=== PATIENT | female | born 1950 | race Caucasian/White ===

== ENCOUNTER 2021-03-17 02:16 | Inpatient (IN) ==
[2021-03-17] MEDS ORDERED: ALBUT/IPRATROP 3MG/0.5MG NEB 3 ML VIAL NEB STA (02:41)
--- NOTE | 2021-03-17 02:44 | Emergency Department Note ---
Impression & Plan Hypoxia ADMIT ED Provider Note HPI: The patient is a 71-year-old female who presents the emergency department with a chief complaint of generalized illness and shortness of breath. Patient states her symptoms have been worsening for about the past week. Patient states that her daughter was at her house tonight and noticed that she seemed to be looking and feeling ill and therefore contacted EMS for the patient to be transported to the ED. Per EMS report the patient had hypoxia in the field at about 70%, she was placed on nasal cannula oxygen with improvement in her saturations. On arrival here to the ED the patient is a poor historian but she is alert, she is saturating at 99% on 4 L nasal cannula oxygen, she is noted to be febrile at 38.3 Celsius, blood pressure stable at 148/68. ROS: -General: Fever -Pulmonary: Hypoxia *10 point review systems was conducted and is otherwise negative unless stated above *Outpatient medications and allergy history reviewed PE: General: Alert HEENT: Normocephalic, atraumatic Eyes: Extraocular eye movement is intact, no scleral erythema Pulmonary: Slightly diminished bilaterally with expiratory wheezing Cardio: Regular rate and rhythm GI: Abdomen is soft, nontender, mild distention : No suprapubic tenderness MSK: No evidence of trauma or malformation of the extremities, no edema Skin: No evidence of rash Neuro: Alert, no focal deficits Psychiatric: Cooperative cafeteria monitor: - An order was placed for continuous cardiac monitoring - Patient was noted to be in sinus rhythm with rate of 80 EKG: Rate: 87 Rhythm: Normal sinus rhythm Intervals: Within normal limits ST changes: No ST elevation Time: 0226 Medical Decision Making: Patient presented to the emergency department with hypoxia, she has had some generalized illness recently, states that she is felt somewhat dizzy on my reas sessment. Patient was noted to have had a recent visit here in the emergency department for dizziness, thought to be vertigo following negative CT imaging of the head. Patient states she is continued to have some symptoms including dizziness and vomiting as well as shortness of breath. Her daughter later arrived at the bedside to provide most of this history. EKG does not show any ischemic changes or arrhythmia, patient's troponin was noted to be slightly elevated at 0.05, she denies any chest pain on my reassessment. She was given aspirin in the ED. I suspect this is demand ischemia related to her hypoxia. Patient's chest x-ray does not show an obvious pneumonia here, given her fever I did obtain blood cultures x2, patient was started on broad-spectrum antibiotics with vancomycin and Zosyn for additional anaerobic coverage following history that was obtained of the patient and angela montanoing. I do not see an obvious pneumonia on her chest x-ray, suspect she may have an early aspiration component given her hypoxia. COVID-19 testing is negative. My reassessment the patient did exhibit an episode of vomiting after the nurse gave her something to drink, given this new history I did discuss her symptoms with the patient and the daughter at the bedside and we will obtain CT imaging of the abdomen and pelvis to rule out a small bowel obstruction or other acute intra-abdominal pathology. I discussed all the above with the on-call hospitalist for [facility], Dr. House, and the patient will be admitted to a telemetry bed for further management. * CRITICAL CARE TIME: ( 35 ) minutes -Stabilization of hypoxia requiring nasal cannula oxygen to maintain oxygen saturations greater than 90%, time spent at the bedside, interpretation of diagnostic studies, discussion with other physicians and arrangement of admission Diagnosis: 1. Hypoxia 2. Fever 3. Elevated troponin 4. Nausea and vomiting Disposition: Admission Eddie Lara DO Emergency Medicine Past Med/Surg History Social History Smoking Status: Current every day smoker Tobacco Type: Cigarettes Preferred Language: [place] Feels Safe at Home: Yes Allergies Allergies Allergy/AdvReac Type Severity Reaction Status Date / Time No Known Allergies Allergy Verified 03/17/21 02:34 Home Meds Home Medications Medication Instructions Recorded Confirmed ondansetron HCl 4 mg tablet 4 mg PO Q8H PRN 03/17/21 03/17/21 Previous Rx's Medication Instructions Recorded meclizine 25 mg tablet 25 mg PO BID PRN #10 tab 03/10/21 Results & Data (ED) Vital Signs Vital Signs - 24 hr 03/17/21 02:26 03/17/21 02:42 03/17/21 02:43 Temperature 38.3 C H Temperature Source Oral Pulse Rate 90 84 Pulse Rate [Apical] Respiratory Rate 26 H 26 H Respiratory Effort / Characteristics Non-Labored Spontaneous Respiratory Depth Normal Blood Pressure 148/68 H Blood Pressure [Right Arm] Blood Pressure Mean 94 Blood Pressure Mean [Right Arm] Pulse Oximetry 99 98 98 Oxygen Delivery Method Nasal Cannula Nasal Cannula Nasal Cannula Oxygen Flow Rate 4 4 4 Sepsis Recent Fever Within 48 Hours Yes Sepsis New/Unexplained Change in Mental Status No Sepsis Action Taken by Nursing No Action Required 03/17/21 03:13 03/17/21 03:14 03/17/21 04:08 Temperature Temperature Source Pulse Rate Pulse Rate [Apical] 73 72 Respiratory Rate 28 H 20 Respiratory Effort / Characteristics Respiratory Depth Blood Pressure Blood Pressure [Right Arm] 106/56 L 98/52 L Blood Pressure Mean Blood Pressure Mean [Right Arm] 72 67 Pulse Oximetry 97 97 94 Oxygen Delivery Method Nasal Cannula Nasal Cannula Nasal Cannula Oxygen Flow Rate 4 4 3 Sepsis Recent Fever Within 48 Hours Sepsis New/Unexplained Change in Mental Status Sepsis Action Taken by Nursing 03/17/21 04:21 Temperature Temperature Source Pulse Rate Pulse Rate [Apical] 78 Respiratory Rate 28 H Respiratory Effort / Characteristics Respiratory Depth Blood Pressure Blood Pressure [Right Arm] 127/75 Blood Pressure Mean Blood Pressure Mean [Right Arm] 92 Pulse Oximetry 93 Oxygen Delivery Method Nasal Cannula Oxygen Flow Rate 3 Sepsis Recent Fever Within 48 Hours Sepsis New/Unexplained Change in Mental Status Sepsis Action Taken by Nursing Laboratory Data Result diagrams: 03/17/21 02:30 03/17/21 02:30 Lab Results 03/17/21 03/17/21 03/17/21 Range/Units 02:30 02:30 02:30 WBC 9.24 (4.8-10.8) K/uL RBC 4.62 (4.2-5.4) M/uL Hgb 14.1 (12.0-16.0) g/dL Hct 44.8 (37-47) % MCV 97.0 (80-100) fL MCH 30.5 (25-34) pg MCHC 31.5 L (32-36) g/dL RDW Std Deviation 48.3 H (36.4-46.3) fL RDW Coeff of Anderson 13.6 (11.5-14.5) % Plt Count 235 (130-400) K/uL MPV 12.4 H (7.4-10.4) fL Immature Gran % (Auto) 0.3 % Neut % (Auto) 79.3 % Lymph % (Auto) 14.7 % Pick[place] % (Auto) 5.4 % Eos % (Auto) 0.0 % Baso % (Auto) 0.3 % Neut # (Auto) 7.32 H (1.4-6.5) K/uL Lymph # (Auto) 1.36 (1.2-3.4) K/uL Pickens # (Auto) 0.50 (0.11-0.59) K/uL Eos # (Auto) 0.00 (0-0.5) K/uL Baso # (Auto) 0.03 (0-0.2) K/uL Immature Gran # (Auto) 0.03 H (0.00-0.02) K/uL PT 11.4 (9.0-12.0) Seconds INR 1.1 (0.9-1.1) APTT 27.1 (21.0-31.0) Seconds PTT Ratio 1.0 VBG pH (7.36-7.41) VBG pCO2 (38-50) mmHg VBG pO2 mmHg VBG HCO3 mmol/L VBG O2 Saturation % VBG Base Excess mEq/L Sodium 136 (136-145) mmol/L Potassium 3.6 (3.5-5.1) mmol/L Chloride 97 L (98-107) mmol/L Carbon Dioxide 28 (21-32) mmol/L Anion Gap 11 (3-11) BUN 16 (6-23) mg/dl Creatinine 0.68 (0.6-1.2) mg/dl Est Cr Clr Drug Dosing 77.5 ml/min Est GFR ( Amer) 103.4 ml/min Est GFR (Non-Af Amer) 89.2 ml/min BUN/Creatinine Ratio 23.5 H (10-20) Glucose 126 H (70-99(Fasting)) mg/dl Lactate (0.4-2.0) mmol/L Calcium 8.9 (8.5-10.1) mg/dl Magnesium 1.8 (1.7-2.4) mg/dl Total Bilirubin 0.4 (0.2-1.0) mg/dl AST 15 (13-39) U/L ALT 11 (7-52) U/L Alkaline Phosphatase 97 (34-104) U/L Troponin I 0.05 H* (0-0.04) ng/ml Total Protein 6.8 (6.0-8.3) gm/dl Albumin 3.9 (3.4-5.0) gm/dl Globulin 2.9 (2.5-4.0) gm/dl Albumin/Globulin Ratio 1.3 (0.9-2) Procalcitonin (0-0.5) ng/ml Urine Color Urine Appearance (Clear) Urine pH (4.5-7.5) Ur Specific [place] (1.000-1.030) Urine Protein (Negative) Urine Glucose (UA) (Negative) Urine Ketones (Negative) Urine Blood (Negative) Urine Nitrite (Negative) Urine Bilirubin (Negative) Urine Urobilinogen (Negative) Ur Leukocyte Esterase (Negative) Urine WBC (Auto) (0-5) /hpf Urine RBC (Auto) (0-4) /hpf U Hyaline Cast (Auto) (0-5) /lpf U Epithel Cells (Auto) (0-5) /lpf Urine Bacteria (Auto) (Negative) Amorphous Sediment (None Prsent) SARS-CoV-2 (PCR) (Negative) Influenza Type A (PCR) (Neg) Influenza Type B (PCR) (Neg) RSV (RT-PCR) (Neg) 03/17/21 03/17/21 03/17/21 Range/Units 02:30 02:55 03:00 WBC (4.8-10.8) K/uL RBC (4.2-5.4) M/uL Hgb (12.0-16.0) g/dL Hct (37-47) % MCV (80-100) fL MCH (25-34) pg MCHC (32-36) g/dL RDW Std Deviation (36.4-46.3) fL RDW Coeff of Anderson (11.5-14.5) % Plt Count (130-400) K/uL MPV (7.4-10.4) fL Immature Gran % (Auto) % Neut % (Auto) % Lymph % (Auto) % [place] % (Auto) % Eos % (Auto) % Baso % (Auto) % Neut # (Auto) (1.4-6.5) K/uL Lymph # (Auto) (1.2-3.4) K/uL [place] # (Auto) (0.11-0.59) K/uL Eos # (Auto) (0-0.5) K/uL Baso # (Auto) (0-0.2) K/uL Immature Gran # (Auto) (0.00-0.02) K/uL PT (9.0-12.0) Seconds INR (0.9-1.1) APTT (21.0-31.0) Seconds PTT Ratio VBG pH (7.36-7.41) VBG pCO2 (38-50) mmHg VBG pO2 mmHg VBG HCO3 mmol/L VBG O2 Saturation % VBG Base Excess mEq/L Sodium (136-145) mmol/L Potassium (3.5-5.1) mmol/L Chloride (98-107) mmol/L Carbon Dioxide (21-32) mmol/L Anion Gap (3-11) BUN (6-23) mg/dl Creatinine (0.6-1.2) mg/dl Est Cr Clr Drug Dosing ml/min Est GFR ( Amer) ml/min Est GFR (Non-Af Amer) ml/min BUN/Creatinine Ratio (10-20) Glucose (70-99(Fasting)) mg/dl Lactate (0.4-2.0) mmol/L Calcium (8.5-10.1) mg/dl Magnesium (1.7-2.4) mg/dl Total Bilirubin (0.2-1.0) mg/dl AST (13-39) U/L ALT (7-52) U/L Alkaline Phosphatase (34-104) U/L Troponin I (0-0.04) ng/ml Total Protein (6.0-8.3) gm/dl Albumin (3.4-5.0) gm/dl Globulin (2.5-4.0) gm/dl Albumin/Globulin Ratio (0.9-2) Procalcitonin 0.12 (0-0.5) ng/ml Urine Color Dark Yellow Urine Appearance Cloudy A (Clear) Urine pH 5.0 (4.5-7.5) Ur Specific [place] 1.024 (1.000-1.030) Urine Protein 2+ H (Negative) Urine Glucose (UA) Negative (Negative) Urine Ketones 2+ H (Negative) Urine Blood 2+ H (Negative) Urine Nitrite Negative (Negative) Urine Bilirubin 1+ H (Negative) Urine Urobilinogen Negative (Negative) Ur Leukocyte Esterase Negative (Negative) Urine WBC (Auto) 5-10 H (0-5) /hpf Urine RBC (Auto) 10-30 H (0-4) /hpf U Hyaline Cast (Auto) 1-5 (0-5) /lpf U Epithel Cells (Auto) >30 H (0-5) /lpf Urine Bacteria (Auto) 1+ H (Negative) Amorphous Sediment Present A (None Prsent) SARS-CoV-2 (PCR) NEGATIVE (Negative) Influenza Type A (PCR) Negative (Neg) Influenza Type B (PCR) Negative (Neg) RSV (RT-PCR) Negative (Neg) 03/17/21 03/17/21 Range/Units 03:05 04:50 WBC (4.8-10.8) K/uL RBC (4.2-5.4) M/uL Hgb (12.0-16.0) g/dL Hct (37-47) % MCV (80-100) fL MCH (25-34) pg MCHC (32-36) g/dL RDW Std Deviation (36.4-46.3) fL RDW Coeff of Anderson (11.5-14.5) % Plt Count (130-400) K/uL MPV (7.4-10.4) fL Immature Gran % (Auto) % Neut % (Auto) % Lymph % (Auto) % [place] % (Auto) % Eos % (Auto) % Baso % (Auto) % Neut # (Auto) (1.4-6.5) K/uL Lymph # (Auto) (1.2-3.4) K/uL [place] # (Auto) (0.11-0.59) K/uL Eos # (Auto) (0-0.5) K/uL Baso # (Auto) (0-0.2) K/uL Immature Gran # (Auto) (0.00-0.02) K/uL PT (9.0-12.0) Seconds INR (0.9-1.1) APTT (21.0-31.0) Seconds PTT Ratio VBG pH 7.40 (7.36-7.41) VBG pCO2 50 (38-50) mmHg VBG pO2 66 mmHg VBG HCO3 30 mmol/L VBG O2 Saturation 93.5 % VBG Base Excess 4.1 mEq/L Sodium (136-145) mmol/L Potassium (3.5-5.1) mmol/L Chloride (98-107) mmol/L Carbon Dioxide (21-32) mmol/L Anion Gap (3-11) BUN (6-23) mg/dl Creatinine (0.6-1.2) mg/dl Est Cr Clr Drug Dosing ml/min Est GFR ( Amer) ml/min Est GFR (Non-Af Amer) ml/min BUN/Creatinine Ratio (10-20) Glucose (70-99(Fasting)) mg/dl Lactate 0.6 (0.4-2.0) mmol/L Calcium (8.5-10.1) mg/dl Magnesium (1.7-2.4) mg/dl Total Bilirubin (0.2-1.0) mg/dl AST (13-39) U/L ALT (7-52) U/L Alkaline Phosphatase (34-104) U/L Troponin I (0-0.04) ng/ml Total Protein (6.0-8.3) gm/dl Albumin (3.4-5.0) gm/dl Globulin (2.5-4.0) gm/dl Albumin/Globulin Ratio (0.9-2) Procalcitonin (0-0.5) ng/ml Urine Color Urine Appearance (Clear) Urine pH (4.5-7.5) Ur Specific [place] (1.000-1.030) Urine Protein (Negative) Urine Glucose (UA) (Negative) Urine Ketones (Negative) Urine Blood (Negative) Urine Nitrite (Negative) Urine Bilirubin (Negative) Urine Urobilinogen (Negative) Ur Leukocyte Esterase (Negative) Urine WBC (Auto) (0-5) /hpf Urine RBC (Auto) (0-4) /hpf U Hyaline Cast (Auto) (0-5) /lpf U Epithel Cells (Auto) (0-5) /lpf Urine Bacteria (Auto) (Negative) Amorphous Sediment (None Prsent) SARS-CoV-2 (PCR) (Negative) Influenza Type A (PCR) (Neg) Influenza Type B (PCR) (Neg) RSV (RT-PCR) (Neg) Administered Medications Sodium Chloride (Nss 1000ml) 1,000 mls @ 999 mls/hr IV .Q1H1M ONE Stop: 03/17/21 05:23 Last Admin: 03/17/21 04:45 Dose: 999 mls/hr Documented by: [id number] Discontinued Medications Albuterol (Albut/Ipratrop 3mg/0.5mg Neb 3 Ml Vial) 3 ml NEB NOW STA; Protocol Stop: 03/17/21 02:42 Last Admin: 03/17/21 02:53 Dose: 3 ml Documented by: [id number] Aspirin (Aspirin Chew 324 Mg) 324 mg PO NOW STA Stop: 03/17/21 04:09 Last Admin: 03/17/21 04:19 Dose: 324 mg Documented by: [id number] Piperacillin Sod/Tazobactam Sod (Zosyn) 4.5 gm in 120 mls @ 240 mls/hr IV NOW ONE Stop: 03/17/21 05:01 Last Admin: 03/17/21 04:45 Dose: 240 mls/hr Documented by: [id number] Discharge Plan Visit Data Chief Complaint: Illness Stated Complaint: Dizziness, Illness ED Provider: Eddie Lara Discharge Problem: Hypoxia Forms Stand Alone Forms: [facility] Prescriptions Prescriptions: No Action meclizine 25 mg tablet 25 mg PO BID PRN (Reason: dizziness) Qty: 10 RF: 0 ondansetron HCl 4 mg tablet 4 mg PO Q8H PRN (Reason: NAUSEA/VOMITING) RF: 0 Referrals Referrals: Jacki Alejandro DO [Primary Care Provider] -
[2021-03-17 03:01] LABS: Basophils # (auto) 0.03 K/uL (0-0.2); Basophils % (auto) 0.3 %; Hematocrit (blood only) 44.8 % (37-47); Hemoglobin 14.1 g/dL (12.0-16.0); Immature Granulocytes # (auto) 0.03 K/uL (0.00-0.02); Immature Granulocytes % (auto) 0.3 %; Lymphocytes # (auto) 1.36 K/uL (1.2-3.4); Lymphocytes % (auto) 14.7 %; Mean Corpuscular Hemoglobin 30.5 pg (25-34); Mean Corpuscular Hgb Conc 31.5 g/dL (32-36); Mean Platelet Volume 12.4 fL (7.4-10.4); Monocytes % (auto) 5.4 %; Neutrophils # (auto) 7.32 K/uL (1.4-6.5); Neutrophils % (auto) 79.3 %; Platelet Count 235 K/uL (130-400); RDW Coefficient of Variation 13.6 % (11.5-14.5); RDW Standard Deviation 48.3 fL (36.4-46.3); Red Blood Count 4.62 M/uL (4.2-5.4); White Blood Count 9.24 K/uL (4.8-10.8)
[2021-03-17 03:17] LABS: INR 1.1 (0.9-1.1); Partial Thromboplastin Time 27.1 Seconds (21.0-31.0); Prothrombin Time 11.4 Seconds (9.0-12.0)
[2021-03-17 03:21] LABS: Albumin Globulin Ratio 1.3 (0.9-2); Albumin Level 3.9 gm/dl (3.4-5.0); BUN Creatinine Ratio 23.5 (10-20); Bilirubin,Total 0.4 mg/dl (0.2-1.0); Calcium 8.9 mg/dl (8.5-10.1); Creatinine Clr Calc Pharmacy 77.5 ml/min; Est GFR (African American) 103.4 ml/min; Est GFR (Non-African American) 89.2 ml/min; Globulin 2.9 gm/dl (2.5-4.0); Magnesium 1.8 mg/dl (1.7-2.4); Potassium 3.6 mmol/L (3.5-5.1); Total Protein 6.8 gm/dl (6.0-8.3)
[2021-03-17 03:28] LABS: Troponin I 0.05 ng/ml (0-0.04)
[2021-03-17 03:29] LABS: Appearance Urine Cloudy (Clear); Bacteria Urine Automated 1+ (Negative); Blood Urine 2+ (Negative); Color Urine Dark Yellow; Epithelial Cell Urine Auto >30 /lpf (0-5); Glucose Urine UA Negative (Negative); Ketones Urine 2+ (Negative); Leukocyte Esterase Urine Negative (Negative); Nitrite Urine Negative (Negative); Protein Urine 2+ (Negative); Specific Gravity Urine 1.024 (1.000-1.030); Urobilinogen Urine Negative (Negative)
[2021-03-17 03:34] LABS: Bilirubin Urine 1+ (Negative)
[2021-03-17 03:47] LABS: Amorphous Sediment Urine Present (None Prsent)
[2021-03-17] MEDS ORDERED: ASPIRIN CHEW 324 MG PO STA (04:08)
[2021-03-17 04:17] LABS: Influenza A virus by PCR Negative (Neg); Influenza B virus by PCR Negative (Neg); RSV by PCR Negative (Neg); SARS CoV2 RNA(COVID-19) InHosp NEGATIVE (Negative)
[2021-03-17] MEDS ORDERED: VANCOMYCIN CONSULT ACTIVE PRN (04:22)
[2021-03-17] MEDS ORDERED: CEFEPIME 2,000 MG/20 ML VIAL IV STA (04:22)
[2021-03-17] MEDS ORDERED: VANCOMYCIN HCL 1,500 MG in SODIUM CHLORIDE 0.9% 500 ML IV ONE (04:22)
[2021-03-17] MEDS ORDERED: SODIUM CHLORIDE 0.9% 1000ML 1,000 ML IV ONE (04:23)
[2021-03-17] MEDS ORDERED: PIPERACILLIN/TAZOBACTAM 4.5 GM/120 ML BAG IV ONE (04:32)
[2021-03-17] MEDS ORDERED: PIPERACILL/TAZOBAC CONSULT ACTIVE PRN (04:32)
[2021-03-17] MEDS ORDERED: ONDANSETRON INJ 2 MG/ML 2 ML VIAL IV STA (05:08)
[2021-03-17 05:13] LABS: Base Excess VBG 4.1 mEq/L; HCO3 VBG 30 mmol/L; Oxygen Saturation VBG 93.5 %; PCO2 VBG 50 mmHg (38-50); PO2 VBG 66 mmHg
[2021-03-17] MEDS ORDERED: OPTIRAY 320 125ml IV ONE (05:49)
--- NOTE | 2021-03-17 06:44 | XRay Report ---
XR chest 1V portable CLINICAL HISTORY: Sepsis. COMPARISON STUDY: Chest radiograph March 10, 2021. FINDINGS: Lung volumes are normal. No consolidation is identified. 1.8 cm irregular nodular density w ithin the left lower lung is noted There is no pneumothorax or pleural effusion. Cardiac size is norm al. Mediastinal contours are normal. There is no evidence for pulmonary edema. IMPRESSION: 1.8 cm irregular nodular density within the left lower lung. This corresponds to a suspi cious pulmonary nodule on chest CT. Neoplasm is the diagnosis of exclusion. An infectious process cou ld appear similar although is considered less likely. ACT 112: Positive. There are findings on this exam that require communication between the performing entity and the patient following Patient Test Result Information Act ([place] Act 112) guidelines. Electronically signed by: Ridge Paz M.D. 03/17/2021 6:43 AM
--- NOTE | 2021-03-17 08:05 | Surgery Consultation ---
Date of Consultation March 17, 2021 Assessment & Plan (1) Perforation of sigmoid colon due to diverticulitis: This is a 71yF who presents to the [facility] ED on 03/17/21 with generalized illness and decline in health since last Monday. Daughter at bedside provided history. Her symptoms include vertigo, nausea/vomiting (including one time in the ER today), low appetite, and generalized weakness. She underwent a CT chest/a/p that revealed findings concerning for pneumonia, lung nodules, as well as perforated sigmoid diverticulitis. We are consulted for perforated diverticulitis. On exam patient's abdomen is softly distended with tenderness to palpation in the LLQ. Labs show WBC 9, Hb, Cr: 0.6, lactate: 0.6. Patient was febrile on arrival to 38.3 and patient on 3L o2. HR 70's. For now would like to proceed with treating diverticulitis conservatively with bowel rest, IVF, and IV abx. Will discuss with the radiologist to see if there is any possibility of drainage of developing abscess. Hospitalist to admit patient. We will continue to follow closely. Supervising Physician Co-Signing Physician Notes I personally saw and evaluated the patient with Tonya Mensah PA-C and agree with the assessment and plan. 71-year-old female with sigmoid diverticulitis with abscess No signs of macro perforation or peritoneal signs on exam CT images and results reviewed, consistent with a pericolic abscess with diverticulitis We did discuss with our radiology department here and they do not think they would be able to drain this percutaneously We will try to treat her nonoperatively with n.p.o. status and IV antibiotics If she does not have significant improvement in the next 48 to 72 hours, plan to repeat CT scan to reevaluate the abscess She may require percutaneous drainage at a tertiary care facility at some point History of Present Illness History of Present Illness This is a 71yF who presents to the [facility] ED on 03/17/21 with generalized illness. Majority of HPI obtained from the daughter at the bedside. She states since last Monday she has noticed a decline in her mother. Apparently the patient is at baseline independent, lives alone, and ambulatory. Since last Monday she has been dizzy, nauseated, has not been eating or drinking, or ambulating much. She was diagnosed with vertigo and has been started on Meclizine after being evaluated in the ER on 03/10 for the above symptoms. Saw her PCP last Monday due to ongoing issues and they also prescribed her some zofran. The daughter has been living with her mother since last Monday to take care of her since she has been unwell. Today, patient reports to the ER as she has not been improving. She underwent a CT chest/a/p that revealed findings concerning for pneumonia, lung nodules, as well as perforated sigmoid diverticulitis. Per patient's daughter she has never been diagnosed with diverticulitis before. She does not see the Doctor frequently and as far as she is aware has not been diagnosed with many medical issues. No prior abdominal surgical history. Last BM was 1 week ago. Per daughter patient has not been complaining of abdominal pain, but has been seen holding her stomach. Daughter says the patient will not complain of pain even if she has it. Allergies Allergy/AdvReac Type Severity Reaction Status Date / Time No Known Allergies Allergy Verified 03/17/21 02:34 Home Medications Medication Instructions Recorded Confirmed Type meclizine 25 mg tablet 25 mg PO BID PRN #10 tab 03/10/21 03/17/21 Rx ondansetron HCl 4 mg tablet 4 mg PO Q8H PRN 03/17/21 03/17/21 History Patient History Social History Smoking Status: Current every day smoker Tobacco Type: Cigarettes Preferred Language: Urdu Feels Safe at Home: Yes Review of Systems Constitutional: + fever, + malaise and + anorexia Respiratory: no dyspnea Gastrointestinal: + nausea, + vomiting and + constipation Neurologic: + generalized weakness and + dizziness Physical Exam Physical Exam: resting in bed, not offering much in way of history Constitutional: no acute distress Respiratory: normal respiratory effort Gastrointestinal (Abdomen): Inspection/Auscultation: + abdomen distended (mild) Percussion/Palpation: + abdomen tender (in LLQ) and abdomen soft Results & Data ([facility]) Vital Signs (Past 12 Hours) Vital Signs Temp Pulse Pulse Resp BP BP Pulse Ox 03/17/21 06:00 70 21 129/49 L 96 03/17/21 05:55 37.1 C 74 26 H 133/48 L 96 03/17/21 04:21 78 28 H 127/75 93 03/17/21 04:08 72 20 98/52 L 94 03/17/21 03:14 73 28 H 106/56 L 97 03/17/21 03:13 97 03/17/21 02:43 84 98 03/17/21 02:42 26 H 98 03/17/21 02:26 38.3 C H 90 26 H 148/68 H 99 PG Care Time/CCT Total # of Minutes Spent Total Time Spent with Patient: Total time spent is greater than 50% in coordination of care (as documented) at patient's floor/unit and/or counseling patient: Coding Level of Care Code 19668 Initial Inpt Care Lvl 2 Diagnoses Perforation of sigmoid colon due to diverticulitis K57.20
--- NOTE | 2021-03-17 09:00 | CT Scan Report ---
CT abd pelvis IV con only CLINICAL HISTORY: N/V TECHNIQUE: Helical axial images of the abdomen and pelvis were obtained and displayed. Automated dose lowering techniques and/or adjustment according to patient size were utilized for this exam. This e xam was performed with intravenous contrast. COMPARISON: None available at the time of this dictation. FINDINGS: Lower chest: For findings above the diaphragm, please see CT chest performed same day. Liver: Unremarkable. No focal lesions are seen. Gallbladder and biliary tree: No calcified gallstones. Normal caliber wall. No intra- or extrahepatic biliary ductal dilation. Pancreas: Unremarkable, no focal lesions. Spleen: Unremarkable. Adrenals: Unremarkable. Kidneys and ureters: Exophytic renal cyst seen on the left. Bladder: Limited evaluation due to underdistention. Reproductive organs: Unremarkable. Bowel: There is thickening of the sigmoid colon with surrounding fat stranding. There is a 3.6 x 3.7 x 4.5 cm collection containing air-fluid level adjacent to the bowel. No distant free air is seen. Th e appendix is normal. Lymph nodes Retroperitoneal: Unremarkable. Mesenteric: Unremarkable. Pelvic: Unremarkable. Peritoneum: Normal. Vessels: Unremarkable. Abdominal wall: A fat-containing umbilical hernia is seen. Bones: Unremarkable. IMPRESSION: Findings are compatible with perforated diverticulitis with adjacent collection. Developing abscess c annot be excluded. ACT 112: Negative or not required by law. Electronically signed by: Irvin Trejo M.D. 03/17/2021 8:58 AM
--- NOTE | 2021-03-17 09:26 | CT Scan Report ---
CT angio chest PE protocol CLINICAL HISTORY: PE TECHNIQUE: Multidetector row helical CT of the chest was performed. Coronal and sagittal reformations were obtained. Coronal and sagittal MIPS were obtained from the axial data set and were submitted fo r review. Automated dose lowering techniques and/or adjustment according to patient size were utiliz ed for this exam. Comparison: None available at the time of this dictation. FINDINGS: Lungs and pleura: There is a 15 mm spiculated nodule with a cavitation noted in the left lower lobe ( series 4 image 101). Biapical scarring and emphysema is seen. Heart and pericardium: Heart size is normal. No pericardial effusion. Vessels: No evidence of pulmonary embolism. Mediastinum and mariia: Unremarkable. Chest wall and lower neck: Unremarkable. Abdomen: Unremarkable. Bones: Unremarkable. IMPRESSION: 1. No evidence of pulmonary embolism. 2. 15 mm spiculated nodule with cavitation in the left lower lobe. This morphology is suspicious for malignancy. PET/CT and/or tissue sampling is recommended. ACT 112: Positive. There are findings on this exam that require communication between the performing entity and the patient following Patient Test Result Information Act ([place] Act 112) guidelines. Electronically signed by: Irvin Trejo M.D. 03/17/2021 9:24 AM
[2021-03-17] MEDS ORDERED: ONDANSETRON INJ 2 MG/ML 2 ML VIAL IV PRN (10:01)
[2021-03-17] MEDS ORDERED: ACETAMINOPHEN 325 MG TAB PO PRN (10:01)
[2021-03-17] MEDS ORDERED: POLYETHYLENE (MIRALAX) 17 GM PACK PO PRN (10:01)
[2021-03-17] MEDS ORDERED: NITROGLYCERIN SL 0.4 MG/TAB TAB SL PRN (10:01)
[2021-03-17] MEDS ORDERED: MECLIZINE HCL 25 MG TAB PO PRN (10:20)
--- NOTE | 2021-03-17 10:20 | History and Physical Report ---
DATE OF ADMISSION: 03/17/2021. CHIEF COMPLAINT: Fever, vertigo, ambulatory dysfunction. HISTORY OF PRESENT ILLNESS: A 71-year-old female with no significant past medical history was in the ER on 03/[address] of the head was okay. She was given fluids for dehydration, sent home on meclizine. She saw her family doctor and was given Zofran, but she was not getting better. She is not at all walking as per the daughter. She lives alone, she ambulates fine as per the daughter. Daughter is living with her since last ER visit. Not at all talking, lethargic and not at all drinking or eating and she was choking on whatever she was given to eat. As she was not getting better, she was brought into the ER and here, she is spiking temperature. No leukocytosis. ABGs were okay. Troponin 0.05. Urine shows ketones. SARS-CoV-2 and influenza A and B, and RSV PCR are negative. Per EMS, she was hypoxic on the field about 70%. She was placed on nasal cannula with improvement in her saturations, but her chest x-ray was okay. In the ER, she vomited, soCt abd/plevis was ordered by ER. We also ordered a CTA chest to rule out any PE. Daughter is in the room. The patient denies any headache, denies any chest pain, denies any back pain. Denies any belly pain. As per daughter, she did not move her bowels since last Monday because she is not eating much and she is having some cough, some complaint of having a headache as per daughter.Patient is mostly sleeping but answeering simple questions. ALLERGIES: No known drug allergies. PAST MEDICAL HISTORY: No known past medical history. PAST SURGICAL HISTORY: Ligation of oviducts. MEDICATIONS: Zofran and meclizine p.r.n. FAMILY HISTORY: No family history on file. SOCIAL HISTORY: , lives alone. Currently daughter is living with her. Smoked 2 packs a day for 50 years. Alcohol; as per the Epic, liquor, several drinks a day. No drug use. REVIEW OF SYSTEMS: As the patient is lethargic, could not be obtained. PHYSICAL EXAMINATION: GENERAL: The patient is drowsy, but arousable and can tell her name, knows her date of , knows that she is in the [facility], can tell today's month and year, but drowsy. VITAL SIGNS: Temperature 37, T-max 38.3, pulse 70, respiratory rate 21, blood pressure 129/49, oxygen 96% on 3 liters. HEENT: Pupils equal, round and reactive to light. Oral mucosa dry. NECK: No JVD. No neck masses. CARDIOVASCULAR: S1 and S2 heard. Regular rate and rhythm. No murmur, no gallop. RESPIRATORY SYSTEM: Normal AP diameter. No accessory muscle use. No wheezing, no crackles. ABDOMEN: Soft, bowel sounds present, nontender, no distention. CENTRAL NERVOUS SYSTEM: Drowsy, oriented to name, place, and time. Could tell the month and year, but very drowsy. No facial droop. Obeys simple commands. Moves extremities. EXTREMITIES: No edema, no erythema. LABORATORY DATA: WBC 9.2, hemoglobin 14.1, hematocrit 44.8, platelets 235. PT 11.4, INR 1.1, APTT 27.1. Venous blood gas; pH of 7.4, pCO2 of 50, pO2 of 66, bicarbonate 30. Sodium 136, potassium 3.6, chloride 97, bicarbonate 28, BUN 16, creatinine 0.6, serum glucose 126. Lactate 0.6, calcium 8.9, magnesium 1.8, total bilirubin 0.4, AST 15, ALT 11, alkaline phosphatase 97. Troponin I 0.05. Procalcitonin 0.12. Urinalysis; +2 ketones, bacteria +1. SARS-CoV-2 PCR negative. Influenza A and B by PCR negative. RSV PCR negative. IMAGING DATA: CTA chest and CT abdomen and pelvis pending. Chest x-ray unremarkable. EKG: Normal sinus rhythm at a rate of 87, no acute ST-T changes seen. ASSESSMENT AND PLAN: This is a 71-year-old female who was in the Emergency Room on 03/10 with vertigo, currently presents with lethargy. 1. Altered mental status, lethargy, and spiking temperatures, but no leukocytosis seen. Was hypoxic, requiring oxygen. Possible aspiration as she has nausea and vomiting. Await CT abdomen and pelvis and CT of the chest. Empirically start on vancomycin and Zosyn. Follow the cultures. IV fluids, n.p.o. for now and closely monitor in the telemetry floor. Speech evaluation when stable for possible aspiration. 2. Ongoing vertigo. CT of the head was okay on 03/10. May need MRI and Neurology evaluation. 3. Mild elevation of troponin, most likely demand ischemia. We will follow serial enzymes and echocardiogram. 4. Deep venous thrombosis prophylaxis. Sequential compression devices for now. DISPOSITION: Closely monitor in the tele floor. Level 1 full code. To be determined. Job ID: [id number] MTDD
--- NOTE | 2021-03-17 11:01 | Pharmacy Report ---
Pharmacy Vanc AUC Short Note - Date of Service March 17, 2021 - Assessment & Plan Assessment 71 year old F receiving vancomycin and zosyn for treatment of intra-abdominal infection. Blood/urine cultures pending. Renal function stable. Day #1 of antimicrobial therapy. Plan Vancomycin * AUC/VICKIE is the preferred PK/PD target for vancomycin * AUC guided dosing is effective and associated with decreased risk of nephrotoxicity compared to traditional trough targets * Trough level of 15 mcg/mL is predicted to achieve target AUC/VICKIE of 400-600 mg/L.hr and may be associated with a 10 % risk of nephrotoxicity * S/p vanc 1500mg loading dose. Begin maintenance regimen of 1500mg IV q18h. * Will obtain a trough around steady state for AUC correlation. Pharmacy will continue to follow and will adjust dose/frequency as necessary. Thank you.
[2021-03-17] MEDS: D5W AND NSS 1,000 ML IV SCH ×2 (11:16→19:41)
[2021-03-17] MEDS: PIPERACILLIN/TAZOBACTAM 3.375 GM in DEXTROSE 5% 100 ML IV SCH ×2 (12:00→19:43)
--- NOTE | 2021-03-17 12:55 | Neurology Consultation ---
Date of Consultation March 17, 2021 Assessment & Plan (1) Vertigo: 1. roberto if pure vertigo but MRI first to r/o stroke lesion 2. meclizine on home med list 3. MRI brain with and without- once able to tolerate. r/o stroke brain lesion 4. CTA head and neck- if MRI normal or stroke is seen 5. aspirin 81 mg would be started if stroke is found but in this patient it would be contraindicated. (2) Perforation of sigmoid colon due to diverticulitis: 1. primary team for antibiotic treatment currently on vancomycin, zosyn, cefepime 2. cultures pending (3) Hypoxia: 1. further work up of lung lesion 2. current every day smoker Supervising Physician Co-Signing Physician Notes I have seen and discussed above patient with Dr Stefanie Schulz, neurology. Patient seen and examined. She reports a 1 week history of atraumatic sense of the room moving with the ceiling in the floor reversing but no johnathan vertigo per se there was not been any nausea but there has been some left hemicranial headache. She denies any double vision slurred speech she has difficulty with swallowing liquids and solids with the sense that they get stuck and with coughing. She denies any unilateral weakness numbness or incoordination. Unclear to me how she has been getting around in her home. She was seen in the emergency room about [address] of the head and given meclizine. She is thought to have a perforated diverticulum with an abdominal asked abscess but denies any abdominal pain. She thinks she probably has had fevers and chills. She also has a chronic cough productive of sputum. Her CT of the head shows a questionable hypodensity in the left cerebellar hemisphere. Chest x-ray shows a left lung spiculated mass. The patient is awake and alert there are no carotid bruits heart is regular rate and rhythm pupils are equal and reactive I had bit difficulty visualizing the optic nerves normal grier and motility I did not appreciate any extraocular muscle palsy or nystagmus. Normal facial sensation and facial symmetry. Tongue is midline gag is intact bilaterally if not hyperactive. I do not appreciate her to be dysarthric. Her strength appears full in the upper and lowers reflexes seem symmetric there was no left drift but there was loss of cerebellar check on the left. [id number] was dystaxic on the left upper normal on the right and appeared to be normal in the lowers reflexes symmetric toes downgoing no sensory loss to light touch. Patient was not ambulated due to current medical status my impression is this patient either has a left cerebellar infarction or possibly a left cerebellar space-occupying lesion plan MRI of the brain with and without contrast if that shows tumor that I do not think she needs a CTA of the head and neck but if it is normal or shows a left cerebellar infarction then would recommend CTA of the head and neck. Empiric antiplatelet therapy would be reasonable but I suspect that due to the diverticular rupture abscess and pending potential surgery that antiplatelet therapy is currently contraindicated. The work-up will depend on the results of the aforementioned. The patient will need a speech therapy consultation as well as physical therapy and Occupational Therapy. We will follow with you History of Present Illness Reason for Consultation: vertigo and dysphagia Requesting Physician: Gerardo House MD Attending Physician: Gerardo House MD History of Present Illness Felisha is a 71 year old female who presented to [facility] ED 03/17/21 with generalized illness and shortness of breath. Her symptoms have been worsening for about the past week.Her daughter was at her house and noticed that she seemed to be looking and feeling ill and therefore contacted EMS. She was hypoxic in the field at about 70%, she was placed on nasal cannula oxygen with improvement in her saturations.In the ED she is saturating at 99% on 4 L nasal cannula oxygen, she is noted to be febrile at 38.3 Celsius, blood pressure stable at 148/68. She is lying in a dark room and does not want to move. She says if she moves she will be sick again. never had vertigo in the past. Allergies Allergy/AdvReac Type Severity Reaction Status Date / Time No Known Allergies Allergy Verified 03/17/21 02:34 Home Medications Medication Instructions Recorded Confirmed Type meclizine 25 mg tablet 25 mg PO BID PRN #10 tab 03/10/21 03/17/21 Rx ondansetron HCl 4 mg tablet 4 mg PO Q8H PRN 03/17/21 03/17/21 History Patient History Social History Smoking Status: Current every day smoker Tobacco Type: Cigarettes Preferred Language: Maldivian Feels Safe at Home: Yes Review of Systems Review of Systems: All systems reviewed & are unremarkable except as noted in HPI & below Physical Exam Physical Exam: Physical Exam: Constitutional: appearance over nourished Ears, Nose, Mouth and Throat: mucous membranes moist, no injection and skin normal, eyes normal Cardiovascular: normal S-1 and S-2 and regular rate and rhythm Respiratory: course breath sounds inspiratory wheezing Musculoskeletal: no peripheral edema and good distal pulses Skin: no stigmata of neurocutaneous disease noted and normal and intact Eyes: extraocular muscles intact (EOMI) and pupils equal, round and reactive to light (PERRL) NEUROLOGIC EXAMINATION: Mental status: Alert and interactive Oriented to person Speech fluent with no evidence of aphasia Cranial Nerves facial symmetry Reflexes: Deep tendon reflexes were symmetrical and graded 2/5. 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, patellar flex ext 5/5 Results & Data ([facility]) Vital Signs (Past 12 Hours) Vital Signs Temp Pulse Pulse Resp BP BP Pulse Ox 03/17/21 10:01 62 18 118/49 L 98 03/17/21 09:15 66 93 03/17/21 08:00 70 24 121/61 99 03/17/21 06:00 70 21 129/49 L 96 03/17/21 05:55 37.1 C 74 26 H 133/48 L 96 03/17/21 04:21 78 28 H 127/75 93 03/17/21 04:08 72 20 98/52 L 94 03/17/21 03:14 73 28 H 106/56 L 97 03/17/21 03:13 97 03/17/21 02:43 84 98 03/17/21 02:42 26 H 98 03/17/21 02:26 38.3 C H 90 26 H 148/68 H 99 Laboratory Results Abnormal lab results 03/17/21 03/17/21 03/17/21 Range/Units 02:30 02:30 02:55 MCHC 31.5 L (32-36) g/dL RDW Std Deviation 48.3 H (36.4-46.3) fL MPV 12.4 H (7.4-10.4) fL Neut # (Auto) 7.32 H (1.4-6.5) K/uL Immature Gran # (Auto) 0.03 H (0.00-0.02) K/uL Chloride 97 L (98-107) mmol/L BUN/Creatinine Ratio 23.5 H (10-20) Glucose 126 H (70-99(Fasting)) mg/dl Troponin I 0.05 H* (0-0.04) ng/ml Urine Appearance Cloudy A (Clear) Urine Protein 2+ H (Negative) Urine Ketones 2+ H (Negative) Urine Blood 2+ H (Negative) Urine Bilirubin 1+ H (Negative) Urine WBC (Auto) 5-10 H (0-5) /hpf Urine RBC (Auto) 10-30 H (0-4) /hpf U Epithel Cells (Auto) >30 H (0-5) /lpf Urine Bacteria (Auto) 1+ H (Negative) Amorphous Sediment Present A (None Prsent) Diagnostic Findings CXR-1.8 cm irregular nodular density within the left lower lung. This corresponds to a suspicious pulmonary nodule on chest CT. Neoplasm is the diagnosis of exclusion. An infectious process could appear similar although is considered less likely. CT abd/pelvis-Findings are compatible with perforated diverticulitis with adjacent collection. Developing abscess cannot be excluded. CT chest-No evidence of pulmonary embolism. 15 mm spiculated nodule with cavitation in the left lower lobe. This morphology is suspicious for malignancy. PET/CT and/or tissue sampling is recommended.
[2021-03-17] MEDS: VANCOMYCIN HCL 1,500 MG in SODIUM CHLORIDE 0.9% 500 ML IV SCH (14:05)
--- NOTE | 2021-03-17 18:36 | Hospitalist Progress Note ---
Date of Service March 17, 2021 Assessment & Plan (1) Perforation of sigmoid colon due to diverticulitis: (2) Hypoxia: Plan: 71-year-old female with no significant past medical history was in the ER on 03/[address] of the head was okay. She presented 03/17 to our ED due to concerns of ongoing lethargy/weakness/spiking temperature after the last ED visit. She is being managed for the following: #. Acute respiratory failure, likely aspiration pneumonia on the background of recent vomiting #. Metabolic encephalopathy -- 2/2 acute infections as described elsewhere #. Vertigo Patient does not require any home oxygen, currently on 2 L, likely aspiration pneumonia Admitting CXR: 1.8 cm irregular nodular density in LLL. Admitting CTA chest: 1.5 cm spiculated nodule with cavitation in the left lower lobe, suspicious for malignancy. PET/CT and tissue sampling recommended. No evidence of PE. 03/17 echo reviewed: Ejection fraction 60 to 65% with normal LV systolic function and LV size. Continue with vancomycin and Zosyn 03/17, follow cultures, IV fluids, n.p.o., speech eval when stable. PT/OT. Neurology consulted: MRI to rule out stroke when able, ?Lynsey #. UTI - follow-up urine cultures. #. Perforated diverticulitis Patient presented with nausea and vomiting and decreased appetite. Admitting CTAP: Suggestive of perforated diverticulitis with adjacent collect ion, likely developing abscess. No rebound tenderness on examination Surgery evaluated, thinks pericolic abscess with diverticulitis. Plan to repeat CT scan in 48 to 72 hours if no significant improvement, might require tertiary care facility for percutaneous drainage. Appreciate surgical input. Maintain n.p.o., continue with IV antibiotics as above. Follow-up blood culture. #. Mild elevation of troponin Likely demand ischemia, following troponin trends negative. EKG reviewed. Echo as above. #. Pulmonary nodule As above, patient made aware, will need outpatient follow-up after her acute issues are addressed and stable. #. DVT prophylaxis: SCDs. Given perforated viscus. Full code Admission and Anticipated Discharge Date Admission Date: March 17, 2021 Subjective Patient is lying in bed, on 2 L nasal cannula oxygen, NAD, no new acute events overnight per RN. Patient denies any nausea or vomiting but had one-time vomiting yesterday. Patient denies any belly pain at this point. Patient denies any fever/chills/chest pain/palpitation/other review of symptoms. Patient appears lethargic and sleepy. Physical Exam Physical Exam: GENERAL: Alert and oriented x3. NAD, on 2L, appears lethargic/drowsy. HEENT: No pallor, no icterus. Pupils equal, round and reactive to light. Oral mucosa moist. NECK: No JVD, no neck masses. HEART: S1 and S2 heard. Regular rate and rhythm. No murmur, no gallop. RESPIRATORY SYSTEM: Normal AP diameter. No accessory muscle use. No wheezing, no crackles. ABDOMEN: Soft, bowel sounds present, nontender, no distention. CENTRAL NERVOUS SYSTEM: No facial droop. Speech is clear. Obeys simple commands. Moves extremities. EXTREMITIES: No edema, no erythema seen. Results & Data Results & Data ([facility]) Vital Signs (Past 12 Hours) Vital Signs Pulse Pulse Resp BP Pulse Ox 03/17/21 13:33 64 24 157/54 H 97 03/17/21 10:01 62 18 118/49 L 98 03/17/21 09:15 66 93 03/17/21 08:00 70 24 121/61 99
[2021-03-18] MEDS: D5W AND NSS 1,000 ML IV SCH ×2 (03:47→11:18)
[2021-03-18] MEDS: PIPERACILLIN/TAZOBACTAM 3.375 GM in DEXTROSE 5% 100 ML IV SCH ×2 (03:49→12:03)
[2021-03-18 05:07] LABS: Hemoglobin 12.4 g/dL (12.0-16.0); Mean Corpuscular Hemoglobin 30.1 pg (25-34); Mean Corpuscular Volume 97.1 fL (80-100); Mean Platelet Volume 12.1 fL (7.4-10.4); Platelet Count 195 K/uL (130-400); RDW Coefficient of Variation 13.3 % (11.5-14.5); RDW Standard Deviation 47.2 fL (36.4-46.3); Red Blood Count 4.12 M/uL (4.2-5.4); White Blood Count 8.37 K/uL (4.8-10.8)
[2021-03-18 05:32] LABS: BUN Creatinine Ratio 13.6 (10-20); Calcium 7.9 mg/dl (8.5-10.1); Creatinine Clr Calc Pharmacy 119.7 ml/min; Est GFR (African American) 119.4 ml/min; Potassium 3.3 mmol/L (3.5-5.1)
--- NOTE | 2021-03-18 06:37 | Electrocardiogram Report ---
Test Reason : Blood Pressure : / mmHG Vent. Rate : 087 BPM Atrial Rate : 087 BPM P-R Int : 128 ms QRS Dur : 086 ms QT Int : 364 ms P-R-T Axes : 083 046 066 degrees QTc Int : 438 ms Normal sinus rhythm Normal ECG When compared with ECG of 10-MAR-2021 13:46, Premature ventricular complexes are no longer Present Confirmed by Jackson Romo ([id number]) on 03/18/2021 6:37:27 AM Referred By: REFERRED SELF Confirmed By:Jackson Romo
--- NOTE | 2021-03-18 07:42 | Surgery Progress Note ---
Date of Service March 18, 2021 Assessment & Plan (1) Perforation of sigmoid colon due to diverticulitis: Plan: She remains afebrile with stable vital signs, no leukocytosis and a benign abdominal exam Can trial clear liquids from a surgical standpoint today Continue IV antibiotics for 1 more day can consider changing to p.o. antibiotics tomorrow We will follow Admission and Anticipated Discharge Date Admission Date: March 17, 2021 Subjective Patient seen and examined. No acute events overnight. Still with mild abdominal pain. Afebrile. Review of Systems Constitutional: no fever and no chills Gastrointestinal: + abdominal pain; no nausea and no vomiting Physical Exam Physical Exam: resting in bed, not offering much in way of history Constitutional: no acute distress Respiratory: normal respiratory effort Gastrointestinal (Abdomen): Inspection/Auscultation: + abdomen distended (mild) Percussion/Palpation: + abdomen tender (Mild in LLQ, improving) and abdomen soft Results & Data ([facility]) Vital Signs (Past 12 Hours) Vital Signs Pulse Resp BP Pulse Ox 03/18/21 04:56 68 16 134/72 92 03/18/21 03:51 69 16 142/61 H 95 03/18/21 03:21 67 18 142/61 H 96 03/18/21 02:30 78 18 143/61 H 93 03/17/21 22:40 69 18 139/63 92 03/17/21 19:45 76 18 137/49 L 94 PG Care Time/CCT Total # of Minutes Spent Total Time Spent with Patient: Total time spent is greater than 50% in coordination of care (as documented) at patient's floor/unit and/or counseling patient: Coding Level of Care Code 92529 Subseq Hosp Care Lvl 1 Diagnoses Perforation of sigmoid colon due to diverticulitis K57.20
[2021-03-18] MEDS: VANCOMYCIN HCL 1,500 MG in SODIUM CHLORIDE 0.9% 500 ML IV SCH (09:12)
[2021-03-18] MEDS: POTASSIUM CHLORIDE / WTR 10 MEQ/100 ML PLCT IV SCH ×4 (10:14→14:15)
--- NOTE | 2021-03-18 11:14 | Pulmonary Consultation ---
Date of Consultation March 18, 2021 Assessment & Plan (1) COPD exacerbation: Suspect the patient has an acute COPD exacerbation likely precipitated by her intra-abdominal infection. We will start the patient on IV Solu-Medrol 40 mg daily, duo nebs every 4 hours and maintenance inhalers including Breo Ellipta/Incruse Ellipta. Transition to oral prednisone in 1 to 2 days and treat for approximately 5 to 7 days. She will need outpatient PFTs and follow-up with pulmonology as an outpatient. Will require two-step prior to discharge to evaluate oxygen needs as an outpatient. Aggressive pulmonary toileting recommended. Incentive spirometer ordered. Out of bed to chair. (2) Tobacco abuse: Smoking cessation strongly advised. (3) Solitary lung nodule: The nodule has morphology that is highly concerning for possible lung cancer. Nodule would be difficult to biopsy through bronchoscopic means. Would recommend an outpatient CT-guided biopsy by interventional radiology perhaps in a [facility] facility when patient is stable. There does not appear to be metastatic disease based on the CT of her abdomen pelvis, but a PET/CT scan may be warranted as an outpatient. Discussed with hospitalist and bedside nurse. We will continue to follow along with you. Thank you for the consult. History of Present Illness Reason for Consultation: Lung nodule and hypoxia Attending Physician: Gerardo House MD History of Present Illness 71-year-old female with a past medical history of tobacco abuse who presented to the hospital due to dizziness. She was found to have a perforated diverticulitis on CT abdomen/pelvis completed 03/17/2021. She has been on vancomycin and Zosyn. She notes that her dizziness and nausea have improved. She is tired and she has a headache. She endorses chronic shortness of breath f or many years. She was found to be hypoxic in the ER and placed on 2 L of oxygen. She notes that she chronically wheezes. She does not use any inhalers. She is smoke cigarettes since she was a teenager roughly 1 pack/day. She does not use any inhalers. She notes that she was never diagnosed with COPD and that she does not regularly see doctors. Chest CTA was completed 03/17 which revealed biapical scarring with emphysema. A 1.5 cm spiculated nodule was noted in the left lower lobe which is concerning for malignancy. Allergies Allergy/AdvReac Type Severity Reaction Status Date / Time No Known Allergies Allergy Verified 03/17/21 02:34 Home Medications Medication Instructions Recorded Confirmed Type meclizine 25 mg tablet 25 mg PO BID PRN #10 tab 03/10/21 03/17/21 Rx ondansetron HCl 4 mg tablet 4 mg PO Q8H PRN 03/17/21 03/17/21 History Patient History Medical History (Updated 03/18/21 @ 11:26 by Daniel Alonso MD) COPD exacerbation Solitary lung nodule Tobacco abuse Social History Smoking Status: Current every day smoker Tobacco Type: Cigarettes Tobacco Cessation Education Requested by Patient: No Hx Alcohol Use: No Hx Substance Use: No Preferred Language: Moldovan Communication Ability: Effective [employer] Sheets Supervisor Required: No Beliefs That Will Affect Care: None Current Living Situation: Alone Other Information That Helps Us Care for You: No Feels Safe at Home: Yes Safety Concerns: Feels Safe At This Time Assistive Devices: Oxygen - Continuous Review of Systems Review of Systems: All systems reviewed & are unremarkable except as noted in HPI & below Physical Exam Physical Exam: Constitutional: Patient appears to be of their stated age. Patient is in no apparent distress. Patient is well-developed. Eyes: Pupils are equal round and reactive to light. Conjunctivae are normal. Anicteric sclera. Ears nose, mouth and throat: No deformities. Nasal cannula in place. Neck: Trachea is midline. Visual inspection is normal. Respiratory: Prolonged phase of exhalation. Bilateral rhonchi noted. Cardiovascular: Regular rate and rhythm. No murmurs. No edema. Gastrointestinal: Tenderness to palpation with diminished bowel sounds. Musculoskeletal: No cyanosis. Patient is able to move all extremities. Skin: No rashes, warm dry and intact. Neurologic: No obvious focal neurological deficits seen. Psychiatric: Flat affect. Oriented to person time and place. Results & Data Results & Data ([facility]) Vital Signs (Past 12 Hours) Vital Signs Temp Pulse Resp BP Pulse Ox 03/18/21 08:16 37 C 65 25 H 156/68 H 97 03/18/21 04:56 68 16 134/72 92 03/18/21 03:51 69 16 142/61 H 95 03/18/21 03:21 67 18 142/61 H 96 02/10/22 02:30 78 18 143/61 H 93 PG Care Time/CCT Total # of Minutes Spent Total Time Spent with Patient: Total time spent is greater than 50% in coordination of care (as documented) at patient's floor/unit and/or counseling patient: Coding Level of Care Code 62439 Inpt Consult Level 5 Diagnoses COPD exacerbation J44.1 Tobacco abuse Z72.0 Solitary lung nodule R91.1
[2021-03-18] MEDS ORDERED: methylPREDNISolone 40 MG in SYRINGE 0 ML IV SCH (11:30)
[2021-03-18] MEDS ORDERED: FLUTICASONE/VILANTEROL 100/25MCG 14 PUFFS/INHALER INH SCH (11:30)
--- NOTE | 2021-03-18 11:40 | Neurology Progress Note ---
Date of Service March 18, 2021 Assessment & Plan (1) Vertigo: Plan: 1. possible transfer due to size of stroke 2. meclizine on home med list - would not continue 3. MRI brain with and without- large cerebellar stroke- requested imaging pushed to [facility] 4. CTA head and neck- ordered but not completed. 5. aspirin 81 mg and plavix 75 mg daily would add if not contraindicated 6. liberalize blood pressure then will need to be optimized. 7. PT/OT speech for discharge needs 8. TTE- no ASD (2) Perforation of sigmoid colon due to diverticulitis: Plan: 1. primary team for antibiotic treatment currently on vancomycin, zosyn, cefepime 2. cultures pending (3) Hypoxia: Plan: 1. further work up of lung lesion 2. current every day smoker states she wants to quit Admission and Anticipated Discharge Date Admission Date: March 17, 2021 Supervising Physician Co-Signing Physician Notes I have seen and discussed above patient with Dr Stefanie Schulz, neurology. Pt seen and examined. MRI brain shows large acute left PICA infarct with mass effect on brainstem. No obvious hydrocephalus. CT shows occlusion of left vert with reconstitution at skull base. DW daughter, pt initial sx were 1 week ago. there was mild improvement and then worsening Monday. pt more alert today. brief exam prior to transfer, follow commands, no EOM palsy, or nystag, nml facial symm. Mild dysarthria, full strength, loss of l cerebellar check dystaxia of l FNF, nml HS. Imp large left pica infarct with l vert occlusion thrombotic, v dissection, could be hypercoag state due to presumed underlying lung carcinoma. pt mri shows large left cerebellar infarct with cerebellar tons herntion and some torque on brainstem. pt needs to be xferred to tertiary care center in case of neuro de siddiqi, for access to NS/craniotomy. antiplt tx at present, consideration of anticoagulant tx after 1 month if infarct resolving, not hemorhagic. Smoking cessation, gradual control of hypertension. md Vasyl Kvng Baeza is a 71 year old female who presented to [facility] ED 03/17/21 with generalized illness and shortness of breath. Her symptoms have been worsening for about the past week.Her daughter was at her house and noticed that she seemed to be looking and feeling ill and therefore contacted EMS. She was hypoxic in the field at about 70%, she was placed on nasal cannula oxygen with improvement in her saturations.In the ED she is saturating at 99% on 4 L nasal cannula oxygen, she is noted to be febrile at 38.3 Celsius, blood pressure stable at 148/68. She is lying in bed and thinks she is doing better. denies CP, SOB, abdominal pain, N, V. Physical Exam Physical Exam: Physical Exam: Constitutional: appearance over nourished Ears, Nose, Mouth and Throat: mucous membranes moist, no injection and skin normal, eyes normal Cardiovascular: normal S-1 and S-2 and regular rate and rhythm Respiratory: course breath sounds inspiratory wheezing Musculoskeletal: no peripheral edema and good distal pulses Skin: no stigmata of neurocutaneous disease noted and normal and intact Eyes: extraocular muscles intact (EOMI) and pupils equal, round and reactive to light (PERRL) NEUROLOGIC EXAMINATION: Mental status: Alert and interactive Oriented to person, [facility] Speech fluent with no evidence of aphasia Cranial Nerves facial symmetry Reflexes: Deep tendon reflexes were symmetrical and graded 2/5. Sensory: light and cool touch Coordination: finger to nose Gait/Stance: Posture lying in bed Strength: hand project manager senior biceps triceps 5/5, patellar flex ext 5/5 Results & Data ([facility]) Vital Signs (Past 12 Hours) Vital Signs Temp Pulse Resp BP Pulse Ox 03/18/21 11:22 71 18 91 03/18/21 08:16 37 C 65 25 H 156/68 H 97 03/18/21 04:56 68 16 134/72 92 03/18/21 03:51 69 16 142/61 H 95 03/18/21 03:21 67 18 142/61 H 96 03/18/21 02:30 78 18 143/61 H 93 Laboratory Results Abnormal lab results 03/18/21 03/18/21 Range/Units 04:26 04:26 RBC 4.12 L (4.2-5.4) M/uL MCHC 31.0 L (32-36) g/dL RDW Std Deviation 47.2 H (36.4-46.3) fL MPV 12.1 H (7.4-10.4) fL Potassium 3.3 L (3.5-5.1) mmol/L Creatinine 0.44 L (0.6-1.2) mg/dl Glucose 154 H (70-99(Fasting)) mg/dl Calcium 7.9 L (8.5-10.1) mg/dl Diagnostic Findings MRI brain-Acute infarct in the left cerebellum in the posterior inferior cerebellar artery territory. No evidence of hemorrhagic transmission.
[2021-03-18] MEDS ORDERED: UMECLIDINIUM BROMIDE 62.5MCG/BLISTER 7 PUFFS/INHALER INH SCH (12:00)
[2021-03-18] MEDS ORDERED: GADOBUTROL 65ML VIAL IV ONE (13:36)
--- NOTE | 2021-03-18 13:49 | Magnetic Resonance Report ---
MR brain wo/w con CLINICAL HISTORY: poss l cerebellar infarct v mass. lung mass vertig TECHNIQUE: Multiplanar and multisequence MR images of the brain were obtained prior to and following administration of gadolinium contrast. Comparison: None available at the time of this dictation. FINDINGS: There is restricted diffusion compatible with an acute infarct in the left cerebellum in the posterio r inferior cerebellar artery territory. There is edema and mass effect with approximately 5 mm rightw dmitriy midline shift. Hypoperfusion is noted in this region. No evidence of hemorrhagic transformation i s seen. The flow void of the distal left vertebral artery is absent. The imaged portions of the paranasal sin uses, mastoid air cells, and orbits are unremarkable. IMPRESSION: Acute infarct in the left cerebellum in the posterior inferior cerebellar artery territory. No eviden ce of hemorrhagic transmission. ACT 112: Negative or not required by law. Electronically signed by: Irvin Trejo M.D. 03/18/2021 1:47 PM
[2021-03-18] MEDS ORDERED: ALBUT/IPRATROP 3MG/0.5MG NEB 3 ML VIAL NEB SCH (15:00)
[2021-03-18] MEDS ORDERED: OPTIRAY 320 125ml IV ONE (16:37)
--- NOTE | 2021-03-18 17:05 | CT Scan Report ---
HEAD CTA HISTORY: Follow-up left cerebellar infarct TECHNIQUE: Multiaxial CT images of the head were performed following the intravenous administration o f contrast to evaluate the major cerebral vessels. Maximum intensity projection images were also obta ined. A dose lowering technique was utilized adhering to the principles of ALARA. COMPARISON: Brain MRI 03/18/2021. FINDINGS: Large hypodense area within the left inferior cerebellum consistent with the patient's know n acute infarct. This results in mild mass effect in partial effacement of the fourth ventricle, unch anged. There slight left cerebellar tonsillar herniation comparison to the right. This results in sli ght displacement of the cervicomedullary junction to the right. No intracranial hemorrhage identified on this contrast-enhanced study. There is approximate 5 mm of right midline shift within the cerebel lum. This is unchanged. The paranasal sinuses and mastoid air cells are clear. The calvarium and skul l base are intact. Moderate calcified plaque within the bilateral carotid siphons. There is mild mult ifocal narrowing within the bilateral carotid siphons due to the calcified plaque. The bilateral MCAs and clinic director show no significant stenosis, occlusion, or aneurysm. The basilar artery is patent. The kirstin or dural venous sinuses are also patent. There is multifocal mild to moderate narrowing of the bilate ral clinic director most pronounced within the proximal left DEFECT REPAIRER GLASSWARE of up to 50%. Focal segment of severe stenosis within the intracranial segment of the distal right vertebral artery of approximately 75% narrowing. There is occlusion of the majority of the distal left vertebral artery which is only partially imaged on this study. This likely accounts for the left cerebellar infarct. IMPRESSION: 1. Occlusion of the majority of the distal left vertebral artery which is only partially imaged on th is study. This could be due to thrombus or dissection. This likely accounts for the left cerebellar i nfarct. The remaining segments of the left vertebral artery are better appreciated on the same day ne ck CTA. 2. Redemonstration of the mass effect from the left cerebellar infarct with 5 mm of right midline fe ft, partial effacement of the fourth ventricle, and mild herniation of the left cerebellar tonsil. Ne urosurgical consultation advised given the mild tonsillar herniation. These findings are better prese nt on the same day brain MRI. 3. Focal area of 75% stenosis within the intracranial segment of the distal right vertebral artery. 4. Mild to moderate multifocal stenosis within the bilateral clinic director. 5. This report was called/faxed to the referring physician following dictation. ACT 112: Negative or not required by law. Electronically signed by: Brijesh Pascual M.D. 03/18/2021 5:03 PM
--- NOTE | 2021-03-18 17:16 | CT Scan Report ---
CT angio neck with con CLINICAL HISTORY: left cerebellar infarct COMPARISON STUDY: No previous studies for comparison. CT DOSE: TECHNIQUE: CT Angio of the neck was performed.followed by image post processing with coronal, and sa gittal MIP reformats.. Stenosis assessment by NASCET criteria. Contrast Volume: Optiray 320, 1 ml FINDINGS: Vascular findings: Right common carotid artery: Patent without significant stenosis. Minimal atherosclerotic calcificati on is present. Right internal carotid artery: Patent without significant stenosis.Minimal atherosclerotic calcificat ion is present. Right vertebral artery: Patent without significant stenosis. Left common carotid artery: Patent without significant stenosis. Minimal atherosclerotic calcificatio n is present. Left internal carotid artery: Patent without significant stenosis.Minimal atherosclerotic calcificati on is present. Left vertebral artery: There is occlusion of the left vertebral artery beginning at the level of C3 a nd extending to the level of C2 and C1. It is reconstituted at the base of the skull. This is seen be ginning on image 60 and extending to image 77. This may relate to thrombosis or dissection. It cannot be determined with certainty. There is also atherosclerotic calcification and narrowing of its origi n. Nonvascular findings: The parotid and submandibular salivary glands appear normal. There is no enlarged cervical adenopathy noted. The airway appears patent. The thyroid gland appears within normal limits. The lung apices ap pear within normal limits. Impression: Evidence of occlusion of the left vertebral artery from C3 to the base of the skull. This may relate to thrombosis or marked dissection. It cannot be determined with certainty. ACT 112: Negative or not required by law. Electronically signed by: Ricardo Barnard M.D. 03/18/2021 5:15 PM
--- NOTE | 2021-03-18 17:20 | Discharge Summary ---
Date of Service March 18, 2021 Admission HPI Per Admitting Provider CHIEF COMPLAINT: Fever, vertigo, ambulatory dysfunction. HISTORY OF PRESENT ILLNESS: A 71-year-old female with no significant past medical history was in the ER on 03/[address] of the head was okay. She was given fluids for dehydration, sent home on meclizine. She saw her family doctor and was given Zofran, but she was not getting better. She is not at all walking as per the daughter. She lives alone, she ambulates fine as per the daughter. Daughter is living with her since last ER visit. Not at all talking, lethargic and not at all drinking or eating and she was choking on whatever she was given to eat. As she was not getting better, she was brought into the ER and here, she is spiking temperature. No leukocytosis. ABGs were okay. Troponin 0.05. Urine shows ketones. SARS-CoV-2 and influenza A and B, and RSV PCR are negative. Per EMS, she was hypoxic on the field about 70%. She was placed on nasal cannula with improvement in her saturations, but her chest x-ray was okay. In the ER, she vomited, soCt abd/plevis was ordered by ER. We also ordered a CTA chest to rule out any PE. Daughter is in the room. The patient denies any headache, denies any chest pain, denies any back pain. Denies any belly pain. As per daughter, she did not move her bowels since last Monday because she is not eating much and she is having some cough, some complaint of having a headache as per daughter.Patient is mostly sleeping but answeering simple questions. ALLERGIES: No known drug allergies. PAST MEDICAL HISTORY: No known past medical history. PAST SURGICAL HISTORY: Ligation of oviducts. MEDICATIONS: Zofran and meclizine p.r.n. FAMILY HISTORY: No family history on file. SOCIAL HISTORY: , lives alone. Currently daughter is living with her. Smoked 2 packs a day for 50 years. Alcohol; as per the Epic, liquor, several drinks a day. No drug use. REVIEW OF SYSTEMS: As the patient is lethargic, could not be obtained. Admission Exam Per Admitting Provider GENERAL: The patient is drowsy, but arousable and can tell her name, knows her date of , knows that she is in the [facility], can tell today's month and year, but drowsy. VITAL SIGNS: Temperature 37, T-max 38.3, pulse 70, respiratory rate 21, blood pressure 129/49, oxygen 96% on 3 liters. HEENT: Pupils equal, round and reactive to light. Oral mucosa dry. NECK: No JVD. No neck masses. CARDIOVASCULAR: S1 and S2 heard. Regular rate and rhythm. No murmur, no gallop. RESPIRATORY SYSTEM: Normal AP diameter. No accessory muscle use. No wheezing, no crackles. ABDOMEN: Soft, bowel sounds present, nontender, no distention. CENTRAL NERVOUS SYSTEM: Drowsy, oriented to name, place, and time. Could tell the month and year, but very drowsy. No facial droop. Obeys simple commands. Moves extremities. EXTREMITIES: No edema, no erythema. Principal Diagnosis Large cerebellar stroke Perforated diverticulitis with developing abscess Discharge Exam GENERAL: Alert and oriented x3. NAD, on 4L, appears lethargic/drowsy. HEENT: No pallor, no icterus. Pupils equal, round and reactive to light. Oral mucosa moist. NECK: No JVD, no neck masses. HEART: S1 and S2 heard. Regular rate and rhythm. No murmur, no gallop. RESPIRATORY SYSTEM: Normal AP diameter. No accessory muscle use. No wheezing, no crackles. ABDOMEN: Soft, bowel sounds present, nontender, no distention. CENTRAL NERVOUS SYSTEM: No facial droop. Speech is clear. Obeys simple commands. Moves extremities. EXTREMITIES: No edema, no erythema seen. Discharge Data Allergies Allergy/AdvReac Type Severity Reaction Status Date / Time No Known Allergies Allergy Verified 03/17/21 02:34 Consultations 03/17/21 04:35 ED Decision to Admit Stat 03/17/21 06:51 Consult General Surgery Routine 03/17/21 10:01 Consult Neurology Routine 03/17/21 18:50 Consult Pulmonology Routine Ordered Studies 03/17/21 04:30 CT abd pelvis IV con only Urgent 03/17/21 05:29 CT angio chest PE protocol Urgent 03/18/21 06:41 MR brain wo/w con Urgent 03/18/21 14:48 CT angio head w con Routine CT angio neck with con Routine Hospital Course (1) Perforation of sigmoid colon due to diverticulitis: (2) Hypoxia: 71-year-old female with no significant past medical history was in the ER on 03/[address] of the head was okay. She presented 03/17 to our ED due to concerns of ongoing lethargy/weakness/spiking temperature after the last ED visit. She was managed for the following: #. Large left cerebellar stroke Acute infarct, with midline shift Discussed with neurology. Risks of deterioration, and possible need for decompression, talked with transfer line at [facility], patient accepted, patient will be discharged to tertiary center. #. Acute respiratory failure, likely aspiration pneumonia on the background of recent vomiting #. Metabolic encephalopathy -- 2/2 acute infections as described elsewhere #. Vertigo Patient does not require any home oxygen, currently on 2 L, likely aspiration pneumonia Admitting CXR: 1.8 cm irregular nodular density in LLL. Admitting CTA chest: 1.5 cm spiculated nodule with cavitation in the left lower lobe, suspicious for malignancy. PET/CT and tissue sampling recommended. No evidence of PE. 03/17 echo reviewed: Ejection fraction 60 to 65% with normal LV systolic function and LV size. Continue with vancomycin and Zosyn 03/17, follow cultures, IV fluids, n.p.o., speech eval when stable. PT/OT. Patient failed dysphagia swallow screen. #. UTI - follow-up urine cultures. #. Perforated diverticulitis Patient presented with nausea and vomiting and decreased appetite. Admitting CTAP: Suggestive of perforated diverticulitis with adjacent collection, likely developing abscess. No rebound tenderness on examination Surgery evaluated, thinks pericolic abscess with diverticulitis. Plan to repeat CT scan in 48 to 72 hours if no significant improvement, might require tertiary care facility for percutaneous drainage. Appreciate surgical input. Maintain n.p.o., continue with IV antibiotics as above. Follow-up blood culture. Patient is being discharged to tertiary care center, if needed IR drainage it will be available. #. Mild elevation of troponin Likely demand ischemia, following troponin trends negative. EKG reviewed. Echo as above. #. Pulmonary nodule As above, patient made aware, will need outpatient follow-up after her acute issues are addressed and stable. #. DVT prophylaxis: SCDs. Given perforated viscus. Full code Patient is being discharged to tertiary care center for large cerebellar stroke. Patient has been already accepted and will be discharged by today evening. Her inpatient medications are put in the discharge instruction sections. Total Time Total Time Spent Total Time Spent (In Minutes): 45 Discharge Plan Discharge Items Patient Disposition: Transfer Acute Care Hospital Reason For Visit: ILLNESS Discharge Diagnosis: Large cerebellar stroke Perforated diverticulitis with adjacent collection, likely developing abscess Activity: As commented below Activity Comment: Per tertiary care recommendation. Bedbound until then. Non-emergency contact: Primary Care Provider Call non-emergency contact if: you have any medication questions and your temperature is above 101 Follow-up/Referrals: Jacki Alejandro DO [Primary Care Provider] - Diet: Nothing by Mouth Addtl Attending Provider Instructions: Patient is being discharged to [facility] due to perforated diverticulitis likely complicated with developing abscess, and d/t large cerebellar stroke. Following are the inpatient medications, patient's home medications are continued as it is in the discharge med rec. Current Inpatient Medications Acetaminophen (Acetaminophen 325 Mg Tab) 650 mg PO Q4H PRN PRN Reason: Pain or Fever Stop: 04/16/21 10:00 Albuterol (Albut/Ipratrop 3mg/0.5mg Neb 3 Ml Vial) 3 ml NEB Q4R CINDY; Protocol Stop: 04/17/21 14:59 Last Admin: 03/18/21 11:20 Dose: 3 ml Documented by: Fluticasone/Vilanterol (Fluticasone/Vilanterol 100/25mcg 14 Puffs/Inhaler) 1 puffs INH DAILY CINDY Stop: 04/17/21 11:29 Last Admin: 03/18/21 15:17 Dose: 1 puffs Documented by: Dextrose/Sodium Chloride (D5w And Nss) 1,000 mls @ 125 mls/hr IV .Q8H CINDY Stop: 04/16/21 10:00 Last Admin: 03/18/21 11:18 Dose: 125 mls/hr Documented by: Piperacillin Sod/Tazobactam (Sod 3.375 gm/ Dextrose) 115 mls @ 28.75 mls/hr IV Q8H CINDY; Protocol Stop: 03/27/21 10:59 Last Admin: 03/18/21 12:03 Dose: 28 mls/hr Documented by: Vancomycin HCl 1,500 mg/ (Sodium Chloride) 530 mls @ 200 mls/hr IV Q18H CINDY Stop: 03/27/21 13:59 Last Infusion: 03/18/21 12:03 Dose: Infused Documented by: Methylprednisolone 40 mg/ (Syringe) 0.64 mls @ 1.5 mls/min IV DAILY CINDY Stop: 04/17/21 11:29 Last Admin: 03/18/21 12:03 Dose: 1.5 mls/min Documented by: Meclizine HCl (Meclizine Hcl 25 Mg Tab) 25 mg PO BID PRN PRN Reason: dizziness Stop: 04/16/21 10:19 Miscellaneous Information (Vancomycin Consult Active) 1 ea N/A UD PRN PRN Reason: Consult Stop: 04/16/21 04:21 Miscellaneous Information (Piperacill/Tazobac Consult Active) 1 ea N/A UD PRN PRN Reason: Consult Stop: 04/16/21 04:31 Nitroglycerin (Nitroglycerin Sl 0.4 Mg/Tab Tab) 0.4 mg SL UD PRN PRN Reason: Chest Pain Stop: 04/16/21 10:00 Ondansetron HCl (Ondansetron Inj 2 Mg/Ml 2 Ml Vial) 4 mg IV Q6H PRN PRN Reason: Nausea Stop: 04/16/21 10:00 Polyethylene Glycol (Polyethylene (Miralax) 17 Gm Pack) 17 gm PO DAILY PRN PRN Reason: Constipation Stop: 04/16/21 10:00 Umeclidinium [place] (Umeclidinium [place] 62.5mcg/Blister 7 Puffs/Inhaler) 1 puffs INH DAILY CINDY Stop: 04/17/21 11:59 Last Admin: 03/18/21 15:17 Dose: 1 puffs Documented by: Pending Studies at Discharge: Yes (Admitting urine and blood cultures.) Stand-Alone Forms: [facility] Skilled Items Patient informed of condition?: Yes DNR: No Discharge Level of Care: Other Communicable Disease: No Discharge Prognosis: Deteriorating Lines: Peripheral IV Urinary Catheter: No Medications and DC Order Prescriptions: Continued meclizine 25 mg tablet 25 mg PO BID PRN (Reason: dizziness) Qty: 10 RF: 0 ondansetron HCl 4 mg tablet 4 mg PO Q8H PRN (Reason: NAUSEA/VOMITING) RF: 0 Discharge Orders: Discharge Order (Routine); Ordered 03/18/21 Ordered By: Tesfaye Crews Admission Data Admit Date/Time: 03/17/21 06:28 Attending Provider: Tesfaye Crews Admit Provider: Gerardo House Primary Care Provider: Jacki Alejandro Other Providers: Joce Evangelista ; Eddie Tobias ; Fely Dover ; Allie Omer ; Bert Fam ; Manuel Wade ; Prachi Barnes ; Jolanta Mera ; Hong Foster Jr ; Elsa Ochoa ; Stew Parr ; Loida Park ; Gerardo House ; Stefanie Schulz ; Daniel Alonso
== END 2021-03-18 18:01 | disposition short-term general hospital (02) | DRG 64 ==
LOC: ED 02:16 → EDINP 06:28 → SUATTDRO 06:28 → EDINP 10:00
DX: G93.41 Metabolic encephalopathy; R91.1 Solitary pulmonary nodule; R11.2 Nausea with vomiting, unspecified; J69.0 Pneumonitis due to inhalation of food and vomit; R42 Dizziness and giddiness; K57.20 Diverticulitis of large intestine with perforation and abscess without bleeding; N39.0 Urinary tract infection, site not specified; J96.01 Acute respiratory failure with hypoxia; F17.210 Nicotine dependence, cigarettes, uncomplicated; I24.8 Other forms of acute ischemic heart disease; Z20.822 Contact with and (suspected) exposure to COVID-19; J44.1 Chronic obstructive pulmonary disease with (acute) exacerbation; R91.8 Other nonspecific abnormal finding of lung field; I63.532 Cerebral infarction due to unspecified occlusion or stenosis of left posterior cerebral artery; T17.918A Gastric contents in respiratory tract, part unspecified causing other injury, initial encounter